=== PATIENT | female | born 1950 | race Asian ===

== ENCOUNTER 2017-09-17 06:51 | Day surgery (SDC) | payer OTHER ==
[2017-09-16 15:08] VITALS: BMI 27.9
[2017-09-17 09:45] VITALS: BP 114/61; PULSE 81; TEMP 97.9
== END 2017-09-17 09:35 | disposition home or self-care (01) ==
LOC: JASU-ENDO 06:51
PROVIDERS: ATTEND Internal Medicine Gastroenterology
PROC: 0DJD8ZZ Inspection of Lower Intestinal Tract, Via Natural or Artificial Opening Endoscopic (ICD-10-PCS; principal; 2017-09-17 09:30)
DX: Z12.11 Encounter for screening for malignant neoplasm of colon (principal); Z86.010 Personal history of colon polyps

== ENCOUNTER → 2020-05-04 | Day surgery (SDC) | payer OTHER | END | disposition home or self-care (01) | LOC: JRADUS-SUR 09:59 | PROVIDERS: ATTEND Family Medicine | PROC: 0H9T3ZX Drainage of Right Breast, Percutaneous Approach, Diagnostic (ICD-10-PCS; principal; 2020-05-04) | DX: C50.911 Malignant neoplasm of unspecified site of right female breast (principal) | CPT/HCPCS: 19083; 77065-TC; 87899; 88305-TC; 88341-TC; 88342-TC; A4648 ==

== ENCOUNTER 2020-05-31 09:04 | Day surgery (SDC) | payer OTHER ==
[2020-05-24 09:47] VITALS: BMI 26.7
[2020-05-31] MEDS ORDERED: ISOSULFAN BLUE 50 MG/5 ML VIAL SQ ONE (13:18)
[2020-05-31] MEDS ORDERED: BUPIVACAINE HCL/PF 0.25% (2.5MG/ML) 10 ML VIAL ONE (13:18)
[2020-05-31] MEDS ORDERED: MIDAZOLAM HCL 2 MG/2 ML SINGLE DOSE VIAL ONE (13:24)
[2020-05-31] MEDS ORDERED: PROPOFOL 20 ML ONE (13:24)
[2020-05-31] MEDS ORDERED: ONDANSETRON 4 MG/2 ML VIAL ONE (13:58)
[2020-05-31] MEDS ORDERED: ceFAZolin SODIUM 1 GM VIAL ONE (13:58)
[2020-05-31] MEDS ORDERED: DEXAMETHASONE SOD PHOSPHATE 4 MG/1 ML VIAL ONE (13:58)
[2020-05-31] MEDS ORDERED: KETOROLAC TROMETHAMINE 30 MG/1 ML VIAL ONE (13:58)
[2020-05-31] MEDS ORDERED: BUPIVACAINE HCL/PF 0.25% (2.5MG/ML) 10 ML VIAL IJ ONE (14:25)
[2020-05-31] MEDS ORDERED: EPHEDRINE SULFATE/0.9% NACL/PF 50 MG/10 ML SYRINGE NR ONE (15:45)
[2020-05-31] MEDS ORDERED: KETOROLAC TROMETHAMINE 30 MG/1 ML VIAL IVPUSH PRN (16:45)
[2020-05-31] MEDS ORDERED: ONDANSETRON 4 MG/2 ML VIAL IVPUSH PRN ×2 (16:45→16:49)
[2020-05-31] MEDS ORDERED: DEXTROSE 5%-0.45% SALINE 1,000 ML IV SCH (16:45)
[2020-05-31] MEDS ORDERED: PROMETHAZINE HCL 25 MG/1 ML VIAL IVPUSH PRN (16:49)
[2020-05-31] MEDS ORDERED: oxyCODONE HCL 5 MG TABLET PO PRN ×2 (16:49)
[2020-05-31 19:08] VITALS: BP 124/66; PULSE 93; TEMP 98
== END 2020-05-31 19:08 | disposition home or self-care (01) ==
LOC: FASU 09:04
PROVIDERS: ATTEND Surgery Surgical Oncology
PROC: 0HBT0ZZ Excision of Right Breast, Open Approach (ICD-10-PCS; principal; 2020-05-31 14:14)
DX: C50.411 Malignant neoplasm of upper-outer quadrant of right female breast (principal); Z17.0 Estrogen receptor positive status [ER+]; I10 Essential (primary) hypertension; E11.9 Type 2 diabetes mellitus without complications; E03.9 Hypothyroidism, unspecified; E78.5 Hyperlipidemia, unspecified; Z79.84 Long term (current) use of oral hypoglycemic drugs
CPT/HCPCS: 19281; 76098-TC-FY; 76641-TC-50; 77290; 77300; 77316; 77332; 77424; 78195-TC; 82962; 94760; A9541; C9726

== ENCOUNTER 2022-12-15 13:36 | Emergency (ER) | payer OTHER ==
[2022-12-15 13:40] VITALS: BP 136/82; PULSE 88; RESP 18; TEMP 98.9; BMI 26.5
[2022-12-15] MEDS ORDERED: KETOROLAC TROMETHAMINE 60 MG/2 ML VIAL IM ONE (15:18)
[2022-12-15] MEDS ORDERED: CYCLOBENZAPRINE HCL 10 MG TABLET (FP) PO ONE (15:19)
[2022-12-15] MEDS ORDERED: LIDOCAINE 5% TOPICAL PATCH TP ONE (15:19)
[2022-12-15] MEDS ORDERED: KETOROLAC TROMETHAMINE 30 MG/1 ML VIAL ONE (15:22)
[2022-12-15] MEDS ORDERED: CYCLOBENZAPRINE HCL 5 MG TABLET ONE (15:22)
[2022-12-15] MEDS ORDERED: LIDOCAINE 5% TOPICAL PATCH ONE (15:22)
[2022-12-15] MEDS ORDERED: LIDOCAINE PATCH REMOVAL MC SCH (22:00)
== END 2022-12-15 15:34 | disposition home or self-care (01) ==
LOC: FER 13:36
PROC: 3E0233Z Introduction of Anti-inflammatory into Muscle, Percutaneous Approach (ICD-10-PCS; principal; 2022-12-15)
DX: S32.000A Wedge compression fracture of unspecified lumbar vertebra, initial encounter for closed fracture (principal); M54.50 Low back pain, unspecified; W01.0XXA Fall on same level from slipping, tripping and stumbling without subsequent striking against object, initial encounter; Y93.01 Activity, walking, marching and hiking; Y92.828 Other wilderness area as the place of occurrence of the external cause
CPT/HCPCS: 72100-TC-FY; 99284-25